=== PATIENT | male | born 1970 | race Caucasian/White ===

== ENCOUNTER 2018-06-23 22:00 | Inpatient (IN) | payer OTHER ==
[~2018-06-23] VITALS: Ht 157.5 cm; Wt 56.7 kg
[2018-06-24] VITALS (8 sets, daily range): BP systolic 112–119; BP diastolic 64–74; PULSE 67–78; RESP 17–19; Ht 157.5 cm; Wt 56.7 kg
[2018-06-24] MEDS ORDERED: SOD CHLORIDE 0.9% 1,000 ML IV STA ×2 (00:57→03:15)
[2018-06-24] MEDS ORDERED: INSULIN REGULAR, HUMAN 100 UNIT/1 ML 3ML VIAL SC ONE (03:00)
[2018-06-24] MEDS ORDERED: SOD CHLORIDE 0.9% 1,000 ML IV SCH (03:49)
--- NOTE | 2018-06-24 03:52 | ERD ---
ER Documentation Chief Complaint Chief Complaint fatigue x 1week;hx DM HPI This is a 48-year-old male with a history of hypertension and type 2 diabetes who is taking metformin who presents to the emergency room for evaluation of gen eralized weakness and fatigue for the past week. According to the patient and patient's family the patient has been more weak than normal. The patient denies any fevers chills nausea vomiting or sick contacts. He denies any aggravating or relieving factors for his symptoms and states that he has been taking his metformin as prescribed. ROS All systems reviewed and are negative except as per history of present illness. Allergies Allergies: Coded Allergies: No Known Allergy (Unverified , 06/23/18) Physical Exam Vitals Vital Signs Date Temp Pulse Resp B/P (MAP) Pulse Ox O2 O2 Flow FiO2 Time Delivery Rate 06/23/18 96.6 83 18 128/77 99 22:04 (94) Physical Exam INITIAL VITAL SIGNS: Reviewed by me GENERAL: The patient is well developed and appropriate for usual state of health in no apparent distress HEENT: Dry mucous membranes, pupils equal, round, and reactive to light. EOMI. There is no scleral icterus. NECK: C-spine is soft and supple, there is no meningismus. There is no cervical lymphadenopathy. LUNGS: Clear to auscultation bilaterally. There are no rales, wheezes or rhonchi. HEART: Regular rate and rhythm, no murmurs, clicks, rubs or gallops. ABDOMEN: Soft, non-tender, non-distended. There are bowel sounds in all four quadrants. No rebound or guarding. EXTREMITIES: There is no peripheral cyanosis or edema. No focal swelling or erythema. NEUROLOGICAL: The patient moves all four extremities with 5/5 strength. Cranial nerves II - XII are intact. Normal gait. Alert and oriented SKIN: There is no apparent rash or petechiae. HEME/LYMPHATIC: There is no evidence of excessive bruising or lymphedema. PSYCHIATRIC: The patient does not appear anxious or depressed. Result Diagram: 06/24/18 0150 06/24/18 0150 Results 24 hrs Laboratory Tests Test 06/24/18 01:50 White Blood Count 9.0 10^3/ul Red Blood Count 5.09 10^6/ul Hemoglobin 14.7 g/dl Hematocrit 43.8 % Mean Corpuscular Volume 86.1 fl Mean Corpuscular Hemoglobin 28.9 pg Mean Corpuscular Hemoglobin Concent 33.6 g/dl Red Cell Distribution Width 12.1 % Platelet Count 344 10^3/UL Mean Platelet Volume 9.3 fl Immature Granulocytes % 0.200 % Neutrophils % 53.5 % Lymphocytes % 34.0 % Monocytes % 7.4 % Eosinophils % 3.9 % Basophils % 1.0 % Nucleated Red Blood Cells % 0.0 /100WBC Immature Granulocytes # 0.020 10^3/ul Neutrophils # 4.8 10^3/ul Lymphocytes # 3.1 10^3/ul Monocytes # 0.7 10^3/ul Eosinophils # 0.4 10^3/ul Basophils # 0.1 10^3/ul Nucleated Red Blood Cells # 0.0 10^3/ul Prothrombin Time 11.6 Sec Prothrombin Time Ratio 0.9 INR International Normalized Ratio 0.84 Activated Partial Thromboplast Time 26.9 Sec Urine Color COLORLESS Urine Clarity CLEAR Urine pH 6.0 Urine Specific [place] 1.025 Urine Ketones NEGATIVE mg/dL Urine Nitrite NEGATIVE mg/dL Urine Bilirubin NEGATIVE mg/dL Urine Urobilinogen NEGATIVE mg/dL Urine Leukocyte Esterase TRACE Mani/ul Urine Microscopic RBC 2 /HPF Urine Microscopic WBC 2 /HPF Urine Bacteria FEW /HPF Urine Hemoglobin NEGATIVE mg/dL Urine Glucose 3+ mg/dL Urine Total Protein NEGATIVE mg/dl Sodium Level 131 mmol/L Potassium Level 4.5 mmol/L Chloride Level 89 mmol/L Carbon Dioxide Level 27 mmol/L Anion Gap 15 Blood Urea Nitrogen 22 mg/dl Creatinine 0.77 mg/dl Est Glomerular Filtrat Rate mL/min > 60 mL/min Glucose Level 805 mg/dl Calcium Level 9.7 mg/dl Total Bilirubin 0.2 mg/dl Direct Bilirubin 0.00 mg/dl Indirect Bilirubin 0.2 mg/dl Aspartate Amino Transf (AST/SGOT) 32 IU/L Alanine Aminotransferase (ALT/SGPT) 37 IU/L Alkaline Phosphatase 256 IU/L Troponin I < 0.012 ng/ml Total Protein 7.5 g/dl Albumin 4.2 g/dl Globulin 3.30 g/dl Albumin/Globulin Ratio 1.27 Lipase 362 U/L Current Medications Medications Dose Sig/Chao Start Time Status Last (Trade) Ordered Route PRN Stop Time Admin Dose Reason Admin Sodium 1,000 ml @ Q1H STAT 06/24/18 DC 06/24/18 Chloride 1,000 mls/hr IV 00:57 06/24/18 01:30 01:56 Insulin 15 unit ONCE ONCE 06/24/18 DC 06/24/18 Human SC 03:00 06/24/18 03:18 Regular 03:01 (Humulin R) Sodium 1,000 ml @ Q1H STAT 06/24/18 06/24/18 Chloride 1,000 mls/hr IV 03:15 06/24/18 03:17 04:14 Procedures/MDM This 48-year-old male presents to the ER for evaluation of generalized weakness. On exam the patient was afebrile nontoxic-appearing and hemodynamically stable. Lab work was obtained lab work does show a blood sugar of 805. The patient was given 2 L of IV fluid, 15 units of subcutaneous insulin. This patient will require admission to the hospital for insulin administration, possibly insulin drip. The patient will be admitted to Dr. Chisholm who states he will follow-up on the sugar levels to determine whether or not this patient needs intensive care unit. The patient has no signs of DKA at this time, and a CO2 levels are normal. Critical Care: Excluding all billable procedures Time: 42 minutes Treatments/Evaluations: Close monitoring and treatment of unstable vital signs, cardiorespiratory, and neurologic status, while maintaining tight balance of fluid, respiratory, and cardiac interventions. Departure Diagnosis: Primary Impression: Hyperglycemia Additional Impressions: Hyperglycemia due to type 2 diabetes mellitus Generalized weakness Fatigue Condition: GROVER Cintron DO Jun 24, 2018 03:52
[2018-06-24] MEDS ORDERED: ONDANSETRON 4 MG INJ IV PRN ×2 (04:00→04:30)
[2018-06-24] MEDS ORDERED: ACETAMINOPHEN 325 MG TAB PO PRN ×2 (04:00→04:30)
[2018-06-24] MEDS ORDERED: ALBUTEROL/IPRATROPIUM (NEB) 3 ML AMP HHN PRN (04:30)
[2018-06-24] MEDS ORDERED: NACL 0.9% 3 ML SYG IV SCH (04:30)
[2018-06-24] MEDS ORDERED: INSULIN GLARGINE [LANTus] (100 UNITS/ML) SYG SC SCH ×2 (06:00→21:00)
[2018-06-24] MEDS: SOD CHLORIDE 0.9% 1,000 ML IV SCH ×4 (06:14→21:48)
[2018-06-24] MEDS: INSULIN ASPART [NOVOLOG] 3 ML PEN SC SCH ×5 (06:17→20:45)
--- NOTE | 2018-06-24 06:27 | HP ---
Date/Time of Note Date/Time of Note DATE: 06/24/18 TIME: 06:19 Assessment/Plan VTE Prophylaxis Pharmacological prophylaxis: heparin Assessment/Plan Assessment/Plan 1. Type 2 diabetes with severe hyperglycemia: No DKA -Blood glucose better controlled. -Continue on subcutaneous insulin, IV fluid -Follow-up A1c -Consider endocrine consult 2. Elevated lipase -Follow-up CT abdomen/pelvis 3. Hyponatremia, pseudohyponatremia from hyperglycemia -See #1 Result Diagram: 06/24/18 0511 06/24/18 0511 Results 24hrs Laboratory Tests Test 06/24/18 01:50 06/24/18 04:25 06/24/18 05:11 White Blood Count 9.0 8.2 Red Blood Count 5.09 4.53 L Hemoglobin 14.7 13.1 L Hematocrit 43.8 38.0 L Mean Corpuscular Volume 86.1 83.9 Mean Corpuscular Hemoglobin 28.9 L 28.9 L Mean Corpuscular Hemoglobin Concent 33.6 34.5 Red Cell Distribution Width 12.1 12.0 Platelet Count 344 297 Mean Platelet Volume 9.3 9.5 Immature Granulocytes % 0.200 0.200 Neutrophils % 53.5 48.1 Lymphocytes % 34.0 38.7 Monocytes % 7.4 6.5 Eosinophils % 3.9 5.2 Basophils % 1.0 1.3 Nucleated Red Blood Cells % 0.0 0.0 Immature Granulocytes # 0.020 0.020 Neutrophils # 4.8 3.9 Lymphocytes # 3.1 H 3.2 H Monocytes # 0.7 0.5 Eosinophils # 0.4 0.4 Basophils # 0.1 0.1 Nucleated Red Blood Cells # 0.0 0.0 Prothrombin Time 11.6 L Prothrombin Time Ratio 0.9 INR International Normalized Ratio 0.84 Activated Partial Thromboplast Time 26.9 Urine Color COLORLESS Urine Clarity CLEAR Urine pH 6.0 Urine Specific [place] 1.025 Urine Ketones NEGATIVE Urine Nitrite NEGATIVE Urine Bilirubin NEGATIVE Urine Urobilinogen NEGATIVE Urine Leukocyte Esterase TRACE A Urine Microscopic RBC 2 Urine Microscopic WBC 2 Urine Bacteria FEW A Urine Hemoglobin NEGATIVE Urine Glucose 3+ H Urine Total Protein NEGATIVE Sodium Level 131 L 137 Potassium Level 4.5 4.0 Chloride Level 89 L 103 # Carbon Dioxide Level 27 23 Anion Gap 15 H 11 Blood Urea Nitrogen 22 H 18 Creatinine 0.77 0.64 Est Glomerular Filtrat Rate mL/min > 60 > 60 Glucose Level 805 *H 385 #H Calcium Level 9.7 8.5 Total Bilirubin 0.2 0.2 Direct Bilirubin 0.00 0.00 Indirect Bilirubin 0.2 0.2 Aspartate Amino Transf (AST/SGOT) 32 37 Alanine Aminotransferase (ALT/SGPT) 37 34 Alkaline Phosphatase 256 H 177 H Troponin I < 0.012 Total Protein 7.5 6.3 # Albumin 4.2 3.4 Globulin 3.30 H 2.90 Albumin/Globulin Ratio 1.27 1.17 Lipase 362 H Bedside Glucose 482 *H Magnesium Level 1.8 Triglycerides Level 157 H Cholesterol Level 204 H LDL Cholesterol, Calculated 123 HDL Cholesterol 50 Cholesterol/HDL Ratio 4.0 Thyroid Stimulating Hormone (TSH) 3.620 HPI/ROS Admit Date/Time Admit Date/Time Jun 24, 2018 at 03:49 Hx of Present Illness This is a 48-year-old male with a history of hypertension and diabetes on metfor min who presents the ER complaining of progressively worsening generalized weakness. Also reported nausea. Patient did not complaint is diabetes medication. Initially he said he has been taking his meds for 3 days, but when pressed he said he was actually 1 week. When presented to the ER, he was found to have a blood glucose greater than 800, no DKA. Lipase 362, sodium 131. Patient was started on subcutaneous insulin and currently blood glucose around 360. PMH/Family/Social Past Medical History PMH/Family/Social Past Medical History Medical History: other (see hpi) Coded Allergies: No Known Drug Allergy (Verified Allergy, Unknown, 02/05/16) Past Surgical History Past Surgical Hx: other (see hpi) Family History Significant Family History: no pertinent family hx Social History Alcohol Use: other Smoking Status: Unknown if ever smoked Drug Use: other Medications Current Medications Sodium Chloride 1,000 ml @ 80 mls/hr [id number] IV ; Start 06/24/18 at 03:49; Stop 06/24/18 at 16:18 Ondansetron HCl (Zofran Inj) 4 mg ER BRIDGE PRN IV NAUSEA AND/OR VOMITING; Start 06/24/18 at 04:00; Stop 06/25/18 at 03:59 Acetaminophen (Tylenol Tab) 650 mg ER BRIDGE PRN PO MILD PAIN(1-3)OR ELEVATED TEMP; Start 06/24/18 at 04:00; Stop 06/25/18 at 03:59 Sodium Chloride 1,000 ml @ 150 mls/hr Q6H40M IV ; Start 06/24/18 at 04:28 IV Flush (NS 3 ml) 3 ml PER PROTOCOL IV ; Start 06/24/18 at 04:30 Ondansetron HCl (Zofran Inj) 4 mg Q6H PRN IV NAUSEA AND/OR VOMITING; Start 06/24/18 at 04:30 Acetaminophen (Tylenol Tab) 650 mg Q6H PRN PO PAIN LEVEL 1-3 OR FEVER; Start 06/24/18 at 04:30 Heparin Sodium (Porcine) (Heparin (5000 Units/1ml)) 5,000 unit Q12 SC ; Start 06/24/18 at 09:00 Albuterol/ Ipratropium (Duoneb) 3 ml Q2H RESP THERAPY PRN HHN SHORTNESS OF BREATH; Start 06/24/18 at 04:30 Insulin Glargine (Lantus) 14 units DAILY@0800 SC ; Start 06/24/18 at 06:00 Insulin Aspart (Novolog Insulin Pen) NOVOLOG *MODERATE* ALGORI... Q4 SC ; Start 06/24/18 at 05:00 Coded Allergies: No Known Allergy (Unverified , 11/14/13) Social History Smoking Status: Never smoker Exam/Review of Systems Vital Signs Vitals Vital Signs Date Temp Pulse Resp B/P (MAP) Pulse Ox O2 O2 Flow FiO2 Time Delivery Rate 06/24/18 97.0 69 18 132/88 99 Room Air 01:00 (103) Exam Constitutional: other (No acute distress) Head: normocephalic, atraumatic Respiratory: clear to auscultation, normal air movement Cardiovascular: regular rate and rhythm, nl pulses Gastrointestinal: soft, non-tender Extremities: normal pulses MAGAN CONTRERAS MD Jun 24, 2018 06:27
[2018-06-24] MEDS: HEPARIN 5,000 UNIT/1 ML VIAL SC SCH ×2 (09:32→20:22)
--- NOTE | 2018-06-24 11:17 | PN ---
Date/Time of Note Date/Time of Note DATE: 06/24/18 TIME: 11:15 Assessment/Plan VTE Prophylaxis SCD applied (from Nsg): No SCD contraindicated: other Pharmacological prophylaxis: heparin Lines/Catheters IV Catheter Type (from Nrs): Peripheral IV Assessment/Plan Hospital Course S: O: VS - see below PE: Assessment/Plan: 48-year-old male who presents with hyperglycemia. 1. Type 2 diabetes with severe hyperglycemia: No DKA, but sugars were in the 700-800 range on admission. Now sugars have improved. A1c results are still pending, it is a send out. -Continue to monitor sugars, follow-up A1c result -Continue sliding scale insulin and Lantus for now, IV fluids -Consider software educator consult 2. Elevated lipase -found on admission -Follow-up CT abdomen/pelvis 3. Hyponatremia, pseudohyponatremia from hyperglycemia -improving -See #1 4. High cholesterol: Signs of triglycerides being mild to moderately elevated. -Start low-dose Lipitor Result Diagram: 06/24/1851006/24/18510 Results 24hrs Laboratory Tests Test 06/24/18 01:50 06/24/18 04:25 06/24/18 05:11 06/24/18 07:59 White Blood Count 9.0 8.2 Red Blood Count 5.09 4.53 L Hemoglobin 14.7 13.1 L Hematocrit 43.8 38.0 L Mean Corpuscular Volume 86.1 83.9 Mean Corpuscular 28.9 L 28.9 L Hemoglobin Mean Corpuscular 33.6 34.5 Hemoglobin Concent Red Cell Distribution 12.1 12.0 Width Platelet Count 344 297 Mean Platelet Volume 9.3 9.5 Immature Granulocytes % 0.200 0.200 Neutrophils % 53.5 48.1 Lymphocytes % 34.0 38.7 Monocytes % 7.4 6.5 Eosinophils % 3.9 5.2 Basophils % 1.0 1.3 Nucleated Red Blood 0.0 0.0 Cells % Immature Granulocytes # 0.020 0.020 Neutrophils # 4.8 3.9 Lymphocytes # 3.1 H 3.2 H Monocytes # 0.7 0.5 Eosinophils # 0.4 0.4 Basophils # 0.1 0.1 Nucleated Red Blood 0.0 0.0 Cells # Prothrombin Time 11.6 L Prothrombin Time Ratio 0.9 INR International 0.84 Normalized Ratio Activated 26.9 Partial Thromboplast Time Urine Color COLORLESS Urine Clarity CLEAR Urine pH 6.0 Urine Specific [place] 1.025 Urine Ketones NEGATIVE Urine Nitrite NEGATIVE Urine Bilirubin NEGATIVE Urine Urobilinogen NEGATIVE Urine Leukocyte Esterase TRACE A Urine Microscopic RBC 2 Urine Microscopic WBC 2 Urine Bacteria FEW A Urine Hemoglobin NEGATIVE Urine Glucose 3+ H Urine Total Protein NEGATIVE Sodium Level 131 L 137 Potassium Level 4.5 4.0 Chloride Level 89 L 103 # Carbon Dioxide Level 27 23 Anion Gap 15 H 11 Blood Urea Nitrogen 22 H 18 Creatinine 0.77 0.64 Est Glomerular Filtrat > 60 > 60 Rate mL/min Glucose Level 805 *H 385 #H Calcium Level 9.7 8.5 Total Bilirubin 0.2 0.2 Direct Bilirubin 0.00 0.00 Indirect Bilirubin 0.2 0.2 Aspartate Amino 32 37 Transf (AST/SGOT) Alanine 37 34 Aminotransferase (ALT/SG PT) Alkaline Phosphatase 256 H 177 H Troponin I < 0.012 Total Protein 7.5 6.3 # Albumin 4.2 3.4 Globulin 3.30 H 2.90 Albumin/Globulin Ratio 1.27 1.17 Lipase 362 H Bedside Glucose 482 *H 42 *L Hemoglobin A1c Magnesium Level 1.8 Triglycerides Level 157 H Cholesterol Level 204 H LDL Cholesterol, 123 Calculated HDL Cholesterol 50 Cholesterol/HDL Ratio 4.0 Thyroid Stimulating 3.620 Hormone (TSH) Test 06/24/18 08:38 06/24/18 09:18 Bedside Glucose 59 L 104 Exam/Review of Systems Vital Signs Vitals Vital Signs Date Temp Pulse Resp B/P (MAP) Pulse Ox O2 O2 Flow FiO2 Time Delivery Rate 06/24/18 98.2 76 17 112/66 98 11:02 (81) 06/24/18 Room Air 01:00 Intake and Output 06/23/18 06/23/18 06/24/18 1515:00 23:00 07:00 IntakeIntake Total 0 ml BalanceBalance 0 ml Medications Medications Current Medications Sodium Chloride 1,000 ml @ 80 mls/hr [id number] IV ; Start 06/24/18 at 03:49; Stop 06/24/18 at 16:18 Ondansetron HCl (Zofran Inj) 4 mg ER BRIDGE PRN IV NAUSEA AND/OR VOMITING; Start 06/24/18 at 04:00; Stop 06/25/18 at 03:59 Acetaminophen (Tylenol Tab) 650 mg ER BRIDGE PRN PO MILD PAIN(1-3)OR ELEVATED TEMP; Start 06/24/18 at 04:00; Stop 06/25/18 at 03:59 Sodium Chloride 1,000 ml @ 150 mls/hr Q6H40M IV Last administered on 06/24/18at 06:14; Admin Dose 150 MLS/HR; Start 06/24/18 at 04:28 IV Flush (NS 3 ml) 3 ml PER PROTOCOL IV ; Start 06/24/18 at 04:30 Ondansetron HCl (Zofran Inj) 4 mg Q6H PRN IV NAUSEA AND/OR VOMITING; Start 06/24/18 at 04:30 Acetaminophen (Tylenol Tab) 650 mg Q6H PRN PO PAIN LEVEL 1-3 OR FEVER; Start 06/24/18 at 04:30 Heparin Sodium (Porcine) (Heparin (5000 Units/1ml)) 5,000 unit Q12 SC Last administered on 06/24/18at 09:32; Admin Dose 5,000 UNIT; Start 06/24/18 at 09:00 Albuterol/ Ipratropium (Duoneb) 3 ml Q2H RESP THERAPY PRN HHN SHORTNESS OF BREATH; Start 06/24/18 at 04:30 Insulin Aspart (Novolog Insulin Pen) NOVOLOG *MODERATE* ALGORI... Q4 SC Last administered on 06/24/18at 06:17; Admin Dose 12 UNIT; Start 06/24/18 at 05:00 Insulin Glargine (Lantus) 14 units HS SC ; Start 06/24/18 at 21:00 Atorvastatin Calcium (Lipitor) 10 mg HS PO ; Start 06/24/18 at 21:00; Status SITA LANGFORD Jun 24, 2018 11:17
[2018-06-24] MEDS ORDERED: ATORVASTATIN 10 MG TAB PO SCH (21:00)
[2018-06-24] MEDS ORDERED: DEXTROSE 50% 50 ML SYRINGE IV PRN ×2 (21:00)
[2018-06-24] MEDS ORDERED: GLUCOSE GEL 15 GRAM TUBE BUCCAL PRN (21:00)
[2018-06-24] MEDS ORDERED: GLUCAGON 1 MG INJ IM PRN (21:00)
[2018-06-24] MEDS ORDERED: GLUCOSE GEL 15 GRAM TUBE PO PRN ×2 (21:00)
[2018-06-25] VITALS (8 sets, daily range): BP systolic 113–129; BP diastolic 67–79; PULSE 61–73; RESP 17–20
[2018-06-25] MEDS ORDERED: ACCU-CHEK XX SCH ×2 (02:00)
[2018-06-25] MEDS: SOD CHLORIDE 0.9% 1,000 ML IV SCH ×2 (04:22→13:48)
[2018-06-25] MEDS: INSULIN ASPART [NOVOLOG] 3 ML PEN SC SCH ×3 (08:08→17:41)
[2018-06-25] MEDS: HEPARIN 5,000 UNIT/1 ML VIAL SC SCH (08:43)
--- NOTE | 2018-06-25 12:14 | PDOCDIS ---
Discharge Instructions CONDITION [id number] Patient Condition: [id number] Stable HOME CARE INSTRUCTIONS: [id number] Special Diet: [id number] Carb controlled diet ACTIVITY: [id number] Activity Restrictions: [id number] Slowly Increase Activity Rest between Activity Avoid heavy lifting FOLLOW UP/APPOINTMENTS Follow-up Plan Please take your medications as prescribed. Please see your doctor in the clinic in the next 1 week. SITA GIBSON Jun 25, 2018 12:14
--- NOTE | 2018-06-25 12:20 | DS ---
Date/Time of Note Date/Time of Note DATE: 06/25/18 TIME: 12:17 Discharge Summary Admission/Discharge Info Admit Date/Time Jun 24, 2018 at 03:49 Discharge Date/Time Discharge Diagnosis 1. Type 2 diabetes with severe hyperglycemia: No DKA -resolved now 2. Elevated lipase -appears to be resolving as patient is tolerating diet without pain 3. Hyponatremia, pseudohyponatremia from hyperglycemia -sodium levels normal now 4. High cholesterol: Signs of triglycerides being mild to moderately elevated. -Started on low-dose Lipitor Patient Condition: Stable Hx of Present Illness 48-year-old male with a history of hypertension and diabetes on metformin who presents the ER complaining of progressively worsening generalized weakness. Also reported nausea. Patient did not complaint is diabetes medication. Initially he said he has been taking his meds for 3 days, but when pressed he said he was actually 1 week. When presented to the ER, he was found to have a blood glucose greater than 800, no DKA. Lipase 362, sodium 131. Patient was started on subcutaneous insulin and currently blood glucose around 360. Hospital Course So patient was admitted to telemetry floor. Heart rate was monitored there were no signs of arrhythmia. Regarding his blood sugars these improved to the normal range after appropriate insulin given as well as IV fluids. Patient was educated about the importance of adhering to his diabetes medicines as an outpatient as apparently he has not been taking any medicines for the last 3 years. He has had a prior history and diagnosis of diabetes in the past. Regarding his current state he was able to ambulate, tolerated p.o. diet, again his sugars remained stable. His A1c results are still pending by the time of discharge but it was thought to be quite elevated given his elevated blood sugars on admission. He was also found with some elevated cholesterol levels and started on low-dose Lipitor for that. Patient will be discharged home today in improved condition with new prescriptions for his medical conditions. See below for full list of discharge medications. Home Meds Active Scripts Metformin* (Glucophage*) 500 Mg Tab, 250 MG PO WITH BREAKFAST DINNE, #60 TAB 2 Refills Prov:ARTHUR,SITA S. 06/25/18 [Insulin Glargine] 100 UNITS/ML SOLN No Conflict Check, 10 UNITS SC HS, #1 B OTTLE 2 Refills Prov:STANISLAW GIBSONP S. 06/25/18 Atorvastatin (Atorvastatin) 10 Mg Tablet, 10 MG PO HS, #30 TAB 4 Refills Prov:SITA GIBSON S. 06/25/18 Follow-up Plan Please take your medications as prescribed. Please see your doctor in the clinic in the next 1 week. Primary Care Provider Not On Staff Doctor Time spent on discharge: > 30 minutes Pending Labs Laboratory Tests Test 06/24/18 17:27 06/24/18 20:14 06/25/18 01:33 06/25/18 06:03 Bedside 201 146 199 Glucose mg/dL (70-220) mg/dL (70-220) mg/dL (70-220) White Blood 9.2 Count 10^3/ul (4.8-1 0.8) Red Blood 4.50 Count 10^6/ul (4.70- 6.10) Hemoglobin 13.1 g/dl (14.0-18. 0) Hematocrit 38.2 % (42.0-52.0) Mean 84.9 Corpuscular fl (82.0-101.0 Volume ) Mean 29.1 Corpuscular pg (29.0-33.0) Hemoglobin Mean 34.3 Corpuscular g/dl (32.0-37. Hemoglobin Conc 0) ent Red Cell 12.4 Distribution % (11.5-14.5) Width Platelet Count 297 10^3/UL (140-4 15) Mean Platelet 9.4 Volume fl (7.4-10.4) Immature 0.300 Granulocytes % % (0.001-0.429 ) Neutrophils % 54.7 % (39.0-77.0) Lymphocytes % 35.0 % (15.0-51.0) Monocytes % 5.6 % (0.0-11.0) Eosinophils % 3.3 % (0.0-7.0) Basophils % 1.1 % (0.0-2.0) Nucleated Red 0.0 Blood Cells % /100WBC (0.0-0 .0) Immature 0.030 Granulocytes # 10^3/ul (0.0-0 .031) Neutrophils # 5.1 10^3/ul (1.6-7 .5) Lymphocytes # 3.2 10^3/ul (0.8-2 .9) Monocytes # 0.5 10^3/ul (0.3-0 .9) Eosinophils # 0.3 10^3/ul (0.0-0 .5) Basophils # 0.1 10^3/ul (0.0-0 .1) Nucleated Red 0.0 Blood Cells # 10^3/ul (0.0-0 .0) Sodium Level 139 mmol/L (135-14 4) Potassium 3.8 Level mmol/L (3.5-5. 1) Chloride Level 108 mmol/L (97-110 ) Carbon Dioxide 24 Level mmol/L (21-31) Anion Gap 7 (5-13) Blood Urea 14 Nitrogen mg/dl (7-20) Creatinine 0.63 mg/dl (0.61-1. 24) Est Glomerular > 60 Filtrat mL/min (>60) Rate mL/min Glucose Level 236 mg/dl (70-220) Calcium Level 8.1 mg/dl (8.4-10. 2) Phosphorus 2.7 Level mg/dl (2.5-4.9 ) Magnesium 1.8 Level mg/dl (1.7-2.5 ) Test 06/25/18 07:55 Bedside 219 Glucose mg/dL (70-220) SITA GIBSON Jun 25, 2018 12:20
== END 2018-06-25 17:30 | disposition home or self-care (01) | DRG 638 ==
LOC: E/R 22:00 → MERGE 06-24 03:49 → TEL 06-24 03:49 → UNDODISIN 06-25 17:32
PROVIDERS: ADMIT Internal Medicine; ATTEND Hospitalist
DX: E11.65 Type 2 diabetes mellitus with hyperglycemia (principal); E87.1 Hypo-osmolality and hyponatremia; E78.00 Pure hypercholesterolemia, unspecified
CPT/HCPCS: 36415; 74176; 80048; 80053; 80061; 81001; 82962; 83036; 83690; 83735; 84100; 84443; 84484; 85025; 85610; 85730; 93005; 96372; J1644; J1815; J7030